=== PATIENT | female | born 1995 | race Caucasian/White ===

== ENCOUNTER 2021-04-03 00:02 | Emergency (ER) | payer SELFPAY ==
[~2021-04-03] VITALS: Ht 157.5 cm; Wt 95.3 kg
[~2021-04-03 00:02] MED LIST: BENZ100C18 PO; PRD20T PO
[2021-04-03] MEDS ORDERED: RT-ALBUTEROL HFA 8.5 GM INHALER IH STA (01:28)
[2021-04-03] MEDS ORDERED: ONDANSETRON 4 MG (ZOFRAN) ORAL DISSOLVE TAB SL ONE (01:30)
[2021-04-03] MEDS ORDERED: OXYMETAZOLINE (AFRIN) 0.05% NA 30 ML BTL ONE (01:34)
[2021-04-03] MEDS ORDERED: ONDA4TAB11 SL (01:37)
[2021-04-03] MEDS ORDERED: ALBU2.5V4 INH (01:37)
--- NOTE | 2021-04-03 01:39 | ED General ---
General Chief Complaint: COVID19 Suspect/Confirmed Stated Complaint: SOB,SORE THROAT,ABD PAIN,TIRED,CONGESTION Nursing Triage Note: nasal/chest congestion x1 week, worse today. runny nose. Source of Information: Patient Exam Limitations: No Limitations History of Present Illness Date Seen by Provider: Apr 03, 2021 Time Seen by Provider: 00:26 Initial Comments This 25-year-old young lady presents to the emergency room with flulike symptoms including cough, congestion, runny nose, headache, and nausea for about 1 week. She reports worsening of the congestion and shortness of breath today. She has a nebulizer machine at home but reports her albuterol has been for a few years. She is afebrile at present with oxygen saturations in the upper 90s. She is in no distress. She has been fully vaccinated for COVID-19. Allergies and Home Medications Allergies Coded Allergies: No Known Drug Allergies (Unverified , 06/05/11) Patient Home Medication List Home Medication List Reviewed: Yes Albuterol Sulfate (Albuterol Sulfate) 2.5 Mg/3 Ml Vial.neb, 2.5 MG INH Q4H PRN for WHEEZING Prescribed by: VEL WOOD on 04/03/21136 Ondansetron (Ondansetron Odt) 4 Mg Tab.rapdis, 4 MG SL Q4H PRN for NAUSEA/VOMITING Prescribed by: VEL WOOD on 04/03/21136 Discontinued Medications Benzonatate (Tessalon Perles) 100 Mg Capsule, 100 MG PO Q8H PRN for COUGH Discontinued Reason: No Longer Taking Prescribed by: USMAN TERRY on 07/06/16 1245 Last Action: Discontinued Prednisone (Prednisone) 20 Mg Tab, 40 MG PO DAILY Discontinued Reason: No Longer Taking Prescribed by: USMAN TERRY on 07/06/16 124 Last Action: Discontinued Review of Systems Review of Systems Constitutional: no symptoms reported EENTM: see HPI Respiratory: see HPI Cardiovascular: no symptoms reported Gastrointestinal: see HPI Genitourinary: no symptoms reported : No Musculoskeletal: no symptoms reported Skin: no symptoms reported Psychiatric/Neurological: See HPI Hematologic/Lymphatic: No Symptoms Reported Immunological/Allergic: no symptoms reported Past Txqauty-Kxqrrm-Srgomc Hx Patient Social History Tobacco Use?: Yes Tobacco type used: Cigars Smoking Status: Current Everyday Smoker Substance use?: No Alcohol Use?: No Pt feels they are or have been: No Immunizations Up To Date First/Initial COVID19 Vaccinat: 08/31 Second COVID19 Vaccination Kishor: 08/31 COVID19 Vaccine Starch Cooker: [place] Seasonal Allergies Seasonal Allergies: Yes Past Medical History Surgery/Hospitalization HX: knee Surgeries: Yes Orthopedic (Left ACL and meniscus) Respiratory: No Cardiac: No Neurological: No : No Last Menstrual Period: Apr 03, 2021 Reproductive Disorders: No Genitourinary: No Gastrointestinal: No Musculoskeletal: No Endocrine: No HEENT: No Cancer: No Psychosocial: No Integumentary: No Family Medical History No Pertinent Family Hx Physical Exam Vital Signs Vital Signs - First Documented 04/03/21 00:11 Temp 36.9 Pulse 100 Resp 18 B/P (MAP) 107/83 (91) Pulse Ox 98 O2 Delivery Room Air Capillary Refill : Less Than 3 Seconds Height, Weight, BMI Height: 5'2" Weight: 125lbs. 0.0oz. 56.812894mr; 38.00 BMI Method:Stated General Appearance: No Apparent Distress, WD/WN HEENT: PERRL/EOMI, TMs Normal, Normal ENT Inspection, Pharynx Normal Neck: Normal Inspection Respiratory: Lungs Clear, Normal Breath Sounds, No Accessory Muscle Use, No Respiratory Distress Cardiovascular: Regular Rate, Rhythm, No Edema, No Murmur Gastrointestinal: Normal Bowel Sounds, Non Tender, Soft Extremity: Normal Inspection, No Pedal Edema Neurologic/Psychiatric: Alert, Oriented x3, No Motor/Sensory Deficits, Normal Mood/Affect Skin: Normal Color, Warm/Dry Progress/Results/Core Measures Suspected Sepsis SIRS Temperature: Pulse: 100 Respiratory Rate: 18 Blood Pressure 107 /83 Mean: 91 Results/Orders Lab Results Laboratory Tests Test 04/03/21 00:17 Range/Units Influenza Type A Antigen NEGATIVE NEGATIVE Influenza Type B Antigen NEGATIVE NEGATIVE My Orders Orders - VEL SMART MD Coronavirus Sars-Cov-2 So 2019 (04/03/21 00:26) Influenza A & B Antigens (04/03/21 00:29) Oxymetazoline 0.05% Nasal [place] (Afrin 0. (04/03/21 09:00) Ondansetron Oral Dissolve Tab (Zofran (04/03/21 01:30) Albuterol Inhaler (Albuterol) (04/03/21 01:28) Oxymetazoline 0.05% Nasal [place] (Afrin 0. (04/03/21 01:34) Medications Given in ED Current Medications Medications Dose Ordered Sig/Glenys Route Start Time Stop Time Status Last Admin Dose Admin Ondansetron HCl 4 mg ONCE ONCE SL 04/03/21 01:30 04/03/21 01:31 DC 04/03/21 01:35 4 MG Vital Signs/I&O 04/03/21 04/03/21 00:11 01:49 Temp 36.9 36.6 Pulse 100 77 Resp 18 16 B/P (MAP) 107/83 (91) 111/73 Pulse Ox 98 100 O2 Delivery Room Air Room Air Capillary Refill : Less Than 3 Seconds Blood Pressure Mean: 91 Progress Note : Progress Note Patient's exam and vital signs were unremarkable. Influenza screen was negative. Send out Covid test was pending. Patient was treated with Zofran, albuterol inhaler, and Afrin. Prescriptions were provided. See discharge instructions for further discussion. Departure Impression Primary Impression: Person under investigation for COVID-19 Additional Impression: Flu-like symptoms Disposition: HOME, SELF-CARE Condition: Improved Departure-Patient Inst. Decision time for Depature: 01:33 Referrals: [facility] (PCP/Family) Primary Care Physician Patient Instructions: COVID-19 ED Add. Discharge Instructions: Your symptoms are suspicious for possible COVID-19 or other viral illness. You and your unvaccinated close contacts should remain in quarantine until the results of your COVID-19 test is known. This should result within 24 to 48 hours. Unvaccinated close contacts should remain in quarantine for 10 days from their last exposure to you during your quarantine time. Drink plenty of clear liquids to stay well-hydrated. You may use Zofran ( ondansetron) as prescribed for nausea and vomiting. You may take ibuprofen up to 600 mg every 6 hours and/or Tylenol (acetaminophen) up to 1000 mg every 6 hours as needed for pain or fever. You may continue taking Mucinex (guaifenesin) ebla-sft-iqgotze. You may also take the Afrin nasal spray provided in the ER, 1 spray in each nostril twice daily for up to 3 days. You should not use this medication longer than 3 days. You may use your inhaler or nebulizer machine every 4 hours as needed for wheezing or shortness of breath. You may take up to 4 puffs on the inhaler in a 4-hour period of time if needed. You may find it helpful to obtain a pulse oximeter to monitor your oxygen saturations when you feel short of breath. If you have repeated oxygen satur ations of less than 92% or any oxygen saturation less than 90%, return to the emergency room for further evaluation. Call with questions or concerns. Return to the ER if you have any other notable worsening of symptoms. All discharge instructions reviewed with patient and/or family. Voiced understanding. Scripts Albuterol Sulfate (Albuterol Sulfate) 2.5 Mg/3 Ml Vial.neb 2.5 MG INH Q4H PRN for WHEEZING, #50 EA 1 Refill Prov: VEL SMART MD 04/03/21 Ondansetron (Ondansetron Odt) 4 Mg Tab.rapdis 4 MG SL Q4H PRN for NAUSEA/VOMITING, #10 TAB Prov: VEL SMART MD 04/03/21 Work/School Note: Work Release Form Date Seen in the Emergency Department: Apr 03, 2021 Return to Work: Apr 05, 2021 Restrictions: Return-No Fever (24hrs), Return-No Vomiting(24hrs) Other Restrictions Listed Below: May return if COVID negative. Quarantine 10 days if COVID positive. Restrictions: Quarantine applies to close contacts also. Follow health dept instructions Copy Copies To 1: CARLOS EDUARDO VIGIL JOSHUA T MD Apr 03, 2021 01:39
[2021-04-03 01:49] VITALS: BP 111/73
[2021-04-03] MEDS ORDERED: OXYMETAZOLINE (AFRIN) 0.05% NA 30 ML BTL SCH (09:00)
== END 2021-04-03 01:51 | disposition home or self-care (01) ==
LOC: EDUNIT# 00:02 → ER 00:08
DX: J11.1 Influenza due to unidentified influenza virus with other respiratory manifestations (principal); F17.290 Nicotine dependence, other tobacco product, uncomplicated; Z20.822 Contact with and (suspected) exposure to COVID-19
CPT/HCPCS: 87635; 87804; 99283

== ENCOUNTER 2021-11-25 19:28 | Emergency (ER) | payer SELFPAY ==
[~2021-11-25] VITALS: Ht 157.5 cm; Wt 63.5 kg
[~2021-11-25 19:28] MED LIST changes: +ALBU2.5V4 INH; +ONDA4TAB11 SL
[2021-11-25] MEDS ORDERED: KETOROLAC 60 MG/2 ML VIAL IM ONE (20:00)
--- NOTE | 2021-11-25 20:00 | ED Lower Extremity ---
General Chief Complaint: Lower Extremity Stated Complaint: POSSIBLE BLOOD CLOT IN LEG Nursing Triage Note: PT ARRIVED BY PRIVATE VEHICLE WITH CHIEF COMPLAINT OF LEG PAIN. [facility] TOLD HER TO COME HERE FOR US FOR POSSIBLE INFECTION OR BLOOD CLOT. PT IS ALERT, ORIENTED X4 AND AMBULATORY. PT STATED ONSET WAS 1.5 WEEKS AGO. PT STATED IT IS RED AND WARM. PT STATED SHE MIGHT HAVE HAD A FEVER, BUT CURRENTLY DOESN'T IN THE ER. PT TOOK IBUPROFEN TODAY ABOUT 6 HOURS AGO. VITALS WERE DONE AND REPORT WAS GIVEN TO PROVIDER. Source: patient Exam Limitations: no limitations (JASPREET ORELLANA APRN) History of Present Illness Date Seen by Provider: November 25, 2021 Time Seen by Provider: 19:43 Initial Comments This is a well-appearing 26-year-old female who presented to the ER via POV with complaints of pain in her right upper thigh. She was evaluated at [facility] and they told her to present to the ER for evaluation of possible cellulitis versus blood clot. States that she has had the symptoms for about 1- 1/2 weeks. Over the last few days she has noticed increased area of redness and warmth to her right lateral upper thigh and has had subjective fevers. She did have a new tattoo placed 4 days ago to her right knee. Describes pain as constant ache that starts in her groin and radiates down her anterior thigh. Has been taking Ibuprofen 800mg TID with no relief. (JASPREET ORELLANA APRN) Allergies and Home Medications Allergies Coded Allergies: No Known Drug Allergies (Unverified , 06/05/11) Patient Home Medication List Home Medication List Reviewed: Yes (JASPREET ORELLANA APRN) Albuterol Sulfate (Albuterol Sulfate) 2.5 Mg/3 Ml Vial.neb, 2.5 MG INH Q4H PRN for WHEEZING Prescribed by: VEL WOOD on 04/03/21136 Ondansetron (Ondansetron Odt) 4 Mg Tab.rapdis, 4 MG SL Q4H PRN for NAUSEA/VOMITING Prescribed by: VEL WOOD on 04/03/21136 Review of Systems Constitutional: see HPI EENTM: no symptoms reported Respiratory: short of breath Cardiovascular: no symptoms reported Gastrointestinal: no symptoms reported Genitourinary: no symptoms reported Musculoskeletal: see HPI Skin: see HPI Psychiatric/Neurological: Anxiety, Emotional Problems (JASPREET ORELLANA APRN) Past Dtibuwj-Yrgtxy-Znlfzn Hx Patient Social History Tobacco Use?: Yes Tobacco type used: Cigarettes Substance use?: No Alcohol Use?: No Pt feels they are or have been: No (JASPREET ORELLANA APRN) Immunizations Up To Date First/Initial COVID19 Vaccinat: 08/31 Second COVID19 Vaccination Kishor: 08/31 (JASPREET ORELLANA APRN) Seasonal Allergies Seasonal Allergies: Yes (JASPREET ORELLANA APRN) Past Medical History Surgery/Hospitalization HX: knee Surgeries: Yes Orthopedic Respiratory: No Cardiac: No Neurological: No Reproductive Disorders: No Genitourinary: No Gastrointestinal: No Musculoskeletal: No Endocrine: No HEENT: No Cancer: No Psychosocial: No Integumentary: No (JASPREET ORELLANA APRN) Family Medical History No Pertinent Family Hx (JASPREET ORELLANA APRN) Physical Exam Vital Signs Capillary Refill : Less Than 3 Seconds (JASPREET ORELLANA APRN) Height, Weight, BMI Height: 5'2" Weight: 125lbs. 0.0oz. 56.180881xt; 25.00 BMI Method:Stated General Appearance: WD/WN, no apparent distress HEENT: PERRL/EOMI, normal ENT inspection Neck: full range of motion, normal inspection Cardiovascular: regular rate, rhythm, no murmur Respiratory: lungs clear, normal breath sounds, no respiratory distress, no accessory muscle use Gastrointestinal: normal bowel sounds, non tender, soft Legs: right leg pain, right leg swelling, right leg other (erythema ) Knees: right knee other (erythema just above knee, new tattoo ) Neurologic/Psychiatric: no motor/sensory deficits, alert, normal mood/affect, oriented x 3 Skin: normal color, warm/dry Lymphatic: inguinal node tender (R) (JASPREET ORELLANA APRN) Progress/Results/Core Measures Results/Orders Lab Results Laboratory Tests Test 11/25/21 20:06 Range/Units White Blood Count 11.2 H 4.3-11.0 10^3/uL Red Blood Count 4.03 3.80-5.11 10^6/uL Hemoglobin 11.6 11.5-16.0 g/dL Hematocrit 34 L 35-52 % Mean Corpuscular Volume 84 80-99 fL Mean Corpuscular Hemoglobin 29 25-34 pg Mean Corpuscular Hemoglobin Concent 34 32-36 g/dL Red Cell Distribution Width 12.6 10.0-14.5 % Platelet Count 481 H 130-400 10^3/uL Mean Platelet Volume 9.1 9.0-12.2 fL Immature Granulocyte % (Auto) 1 % Neutrophils (%) (Auto) 78 H 42-75 % Lymphocytes (%) (Auto) 15 12-44 % Monocytes (%) (Auto) 5 0-12 % Eosinophils (%) (Auto) 1 0-10 % Basophils (%) (Auto) 0 0-10 % Neutrophils # (Auto) 8.8 H 1.8-7.8 10^3/uL Lymphocytes # (Auto) 1.6 1.0-4.0 10^3/uL Monocytes # (Auto) 0.6 0.0-1.0 10^3/uL Eosinophils # (Auto) 0.1 0.0-0.3 10^3/uL Basophils # (Auto) 0.0 0.0-0.1 10^3/uL Immature Granulocyte # (Auto) 0.1 0.0-0.1 10^3/uL Erythrocyte Sedimentation Rate 36 H 0-20 MM/HR D-Dimer 2.79 H 0.00-0.49 UG/ML Sodium Level 136 135-145 MMOL/L Potassium Level 3.9 3.6-5.0 MMOL/L Chloride Level 98 98-107 MMOL/L Carbon Dioxide Level 26 21-32 MMOL/L Anion Gap 12 5-14 MMOL/L Blood Urea Nitrogen 8 7-18 MG/DL Creatinine 0.52 L 0.60-1.30 MG/DL Estimat Glomerular Filtration Rate 131 BUN/Creatinine Ratio 15 Glucose Level 105 70-105 MG/DL Calcium Level 9.1 8.5-10.1 MG/DL Corrected Calcium 9.7 8.5-10.1 MG/DL Total Bilirubin 0.4 0.1-1.0 MG/DL Aspartate Amino Transf (AST/SGOT) 13 5-34 U/L Alanine Aminotransferase (ALT/SGPT) 10 0-55 U/L Alkaline Phosphatase 72 40-136 U/L Total Protein 7.5 6.4-8.2 GM/DL Albumin 3.3 3.2-4.5 GM/DL Serum Test, Qualitative NEGATIVE NEGATIVE (MAXWELLADRIANO Santos KEE) Blood Pressure Mean: 86 Progress Progress Note : Progress Note Patient examined and in no acute distress. Will obtain basic blood work and D- dimer to evaluate for infection vs blood clot. Has new tattoo on her right anterior knee that she received about 4 days ago. She is adamant symptoms started before receiving tattoo and does not feel this is related. Labs reviewed. Minimal elevation in WBC. Has significant increase in D-dimer at 2.79. No US services available at this time. Discussed results with patient and concern for possible blood clot. Patient became very tearful, crying, and anxious. Reassured that we will treat her tonight and will have her return tomorrow for OP ultrasound. However, with her c/o shortness of air I recommend doing a CT angio of her chest to r/o and PE. Initially she refused, but then verbalized consent of procedure. CT angio negative, results communicated to patient. Will treat with 1.5mg/kg Lovenox tonight and have her return tomorrow for US. She is agreeable with plan. While waiting Lovenox injection patient was on phone with mother and decided to walk out of ER without receiving OP order or Lovenox. She left with IV still in arm. Nurse attempted to contact patient via phone. Patient returned to ER to have IV removed, inquired as to why she left before treatment and states her mother feels she should be admitted for her blood clot and they will plan to go to [place] ER for treatment. Discussed with patient that her labs/presentation are indicative of DVT, however without US I cannot confirm DVT at this time. We are weighing risks/benefit of treatment and will go ahead and cover her with Lovenox which is an appropriate initial outpatient treatment for DVT. She agreed to stay and receive Lovenox. Discharge POC reviewed and she is agreeable with plan. (JASPREET ORELLANA APRN) Diagnostic Imaging Diagonstic Imaging: CT Plain Films/CT/US/NM/MRI: chest Comments [facility]. [place], [place] NAME: GEOVANNY ELIAS [facility] REC#: [id number] PT STATUS: REG ER : 1995 PHYSICIAN: JASPREET ORELLANA APRN ADMIT DATE: 11/25/21/ER Signed Date of Exam:11/25/21 CT ANGIO CHEST W PROCEDURE: CT angiography of the chest with contrast. TECHNIQUE: Multiple contiguous axial images were obtained through the chest after uneventful bolus administration of intravenous contrast. 3D reconstructed CTA MIP acquisitions were also performed. Auto Exposure Controls were utilized during the CT exam to meet ALARA standards for radiation dose reduction. INDICATION: Elevated D-dimer. Leg pain. Shortness of breath. COMPARISON: None. FINDINGS: This helical CT pulmonary angiogram is diagnostic to the subsegmental level branches of the pulmonary artery and demonstrates no pulmonary emboli. The heart and great vessels are unremarkable. There is no pericardial effusion. There is no axillary, mediastinal or hilar adenopathy. The lungs demonstrate no consolidation, nodules or other parenchymal abnormality. No pleural effusion is seen. Osseous structures appear normal. Limited views of the upper abdomen are unremarkable. IMPRESSION: No acute pulmonary embolus. Negative CT chest. Dictated by: Dictated on workstation # [id number] Dict: 11/25/212133 Trans: 11/25/212138 [facility] [id number] Interpreted by: EDITH INGRAM DO Electronically signed by: EDITH INGRAM DO 11/25/212138 (JASPREET ORELLANA SOLAR BUSINESS DEVELOPER) Departure Impression Primary Impression: Suspected DVT (deep vein thrombosis) Disposition: 01 HOME, SELF-CARE Condition: Stable Departure-Patient Inst. Decision time for Depature: 22:34 (JASPREET ORELLANA APRN) Referrals: [facility] (PCP/Family) Primary Care Physician Patient Instructions: Deep Vein Thrombosis (Blood Clots in the Legs) (DC) Add. Discharge Instructions: Plan: 1. Given Lovenox 1.5 mg/kg for total dose of 90 mg in the ER prior to discharge. This is a 24-hour dosing. We will schedule you an outpatient ultrasound of your right lower extremity to evaluate for any DVT (deep vein thrombosis) tomorrow. 2. We performed a CT scan of your lungs to check for a pulmonary embolism (blood clot in the lungs). This exam was negative. 3. You will need to follow up with your doctor tomorrow if your ultrasound is positive for a blood clot so we can get you started on the appropriate anticoagulants. We will call results of ultrasound to [facility]. If you do not hear anything please call [facility]. 4. Return for any new, concerning, or worsening symptoms. All discharge instructions reviewed with patient and/or family. Voiced un derstanding. ATTENDING PHYSICIAN NOTE: I WAS PHYSICALLY PRESENT ER PHYSICIAN, BUT I WAS NOT INVOLVED IN ANY DECISION MAKING OR ANY CARE OF THIS PATIENT. (ADRIANO ARREOLA DO) JASPREET ORELLANA SOLAR BUSINESS DEVELOPER November 25, 2021 20:00 ADRIANO ARREOLA DO December 02, 2021 04:16
[2021-11-25 20:20] LABS: ALBUMIN 3.3 GM/DL (3.2-4.5)
[2021-11-25 20:21] LABS: BASOPHILS % (AUTO) 0 % (0-10); EOSINOPHILS # (AUTO) 0.1 10^3/uL (0.0-0.3); EOSINOPHILS % (AUTO) 1 % (0-10); HEMATOCRIT 34 % (35-52); HEMOGLOBIN 11.6 g/dL (11.5-16.0); LYMPHOCYTES # (AUTO) 1.6 10^3/uL (1.0-4.0); LYMPHOCYTES % (AUTO) 15 % (12-44); MEAN CORPUSCULAR HEMOGLOBIN 29 pg (25-34); MEAN CORPUSCULAR HGB CONC 34 g/dL (32-36); MEAN CORPUSCULAR VOLUME 84 fL (80-99); MEAN PLATELET VOLUME 9.1 fL (9.0-12.2); MONOCYTES # (AUTO) 0.6 10^3/uL (0.0-1.0); MONOCYTES % (AUTO) 5 % (0-12); NEUTROPHILS # (AUTO) 8.8 10^3/uL (1.8-7.8); NEUTROPHILS % (AUTO) 78 % (42-75); PLATELET COUNT 481 10^3/uL (130-400); POTASSIUM 3.9 MMOL/L (3.6-5.0); WHITE BLOOD COUNT 11.2 10^3/uL (4.3-11.0)
[2021-11-25 20:22] LABS: CALCIUM 9.1 MG/DL (8.5-10.1)
[2021-11-25 20:23] LABS: TOTAL PROTEIN 7.5 GM/DL (6.4-8.2)
[2021-11-25 20:25] LABS: BILIRUBIN,TOTAL 0.4 MG/DL (0.1-1.0)
[2021-11-25 20:27] LABS: CREATININE SERUM 0.52 MG/DL (0.60-1.30)
[2021-11-25] MEDS ORDERED: KETOROLAC 30 MG/ML VIAL IVP ONE (20:30)
[2021-11-25] MEDS ORDERED: KETOROLAC 30 MG/ML VIAL ONE (20:31)
[2021-11-25 20:36] LABS: ERYTHROCYTE SEDIMENTATION RATE 36 MM/HR (0-20)
[2021-11-25] MEDS ORDERED: NS 100 ML (IVPB) BAG IV ONE (21:15)
[2021-11-25] MEDS ORDERED: IOHEXOL 350 MG/ML 100 ML (OMNIPAQUE 350) VIAL IV ONE (21:15)
--- NOTE | 2021-11-25 21:38 | Diagnostic Imaging Report ---
PROCEDURE: CT angiography of the chest with contrast. TECHNIQUE: Multiple contiguous axial images were obtained through the chest after uneventful bolus administration of intravenous contrast. 3D reconstructed CTA MIP acquisitions were also performed. Auto Exposure Controls were utilized during the CT exam to meet ALARA standards for radiation dose reduction. INDICATION: Elevated D-dimer. Leg pain. Shortness of breath. COMPARISON: None. FINDINGS: This helical CT pulmonary angiogram is diagnostic to the subsegmental level branches of the pulmonary artery and demonstrates no pulmonary emboli. The heart and great vessels are unremarkable. There is no pericardial effusion. There is no axillary, mediastinal or hilar adenopathy. The lungs demonstrate no consolidation, nodules or other parenchymal abnormality. No pleural effusion is seen. Osseous structures appear normal. Limited views of the upper abdomen are unremarkable. IMPRESSION: No acute pulmonary embolus. Negative CT chest. Dictated by: Dictated on workstation # [id number]
[2021-11-25] MEDS: ENOXAPARIN 100 MG/1 ML (LOVENOX) SYR SC ONE ×2 (22:43→22:56)
[2021-11-25 23:08] VITALS: BP 111/72
== END 2021-11-25 23:08 | disposition home or self-care (01) ==
LOC: EDUNIT# 19:28 → ER 19:32
DX: M79.651 Pain in right thigh (principal); D72.829 Elevated white blood cell count, unspecified; R79.1 Abnormal coagulation profile; F17.210 Nicotine dependence, cigarettes, uncomplicated
CPT/HCPCS: 36415; 71275; 80053; 84703; 85025; 85379; 85652; 96372; 96374

== ENCOUNTER 2021-11-26 11:47 | Emergency (ER) | payer SELFPAY ==
--- NOTE | 2021-11-26 12:44 | ED General ---
General Stated Complaint: R LEG PAIN Source of Information: Old Records Exam Limitations: No Limitations History of Present Illness Date Seen by Provider: November 26, 2021 Time Seen by Provider: 11:50 Initial Comments This 26-year-old young lady presented to the emergency room during the prior shift. She was found to have significant right leg swelling and an elevated D- dimer. She was referred back to the hospital this morning for ultrasound to evaluate for DVT. Ultrasound was negative for DVT but there is significant swelling and lymphadenopathy concerning for cellulitis. Patient had not yet been prescribed any antibiotics. Report was delivered to me verbally by the clinical research technician. I reviewed the findings on behalf of the ordering physician. Patient was advised to return to the emergency room for further evaluation with repeat labs and for treatment with IV antibiotics. Patient checked in and orders were placed. Unfortunately, the patient left of the waiting room without being seen. Patient was not examined by this provider. Allergies and Home Medications Allergies Coded Allergies: No Known Drug Allergies (Unverified , 06/05/11) Patient Home Medication List Home Medication List Reviewed: Yes Albuterol Sulfate (Albuterol Sulfate) 2.5 Mg/3 Ml Vial.neb, 2.5 MG INH Q4H PRN for WHEEZING Prescribed by: VEL WOOD on 04/03/21 013 Ondansetron (Ondansetron Odt) 4 Mg Tab.rapdis, 4 MG SL Q4H PRN for NAUSEA/VOMITING Prescribed by: VEL WOOD on 04/03/21 0137 Review of Systems Review of Systems Constitutional: other (Interview was not performed. Constitutional symptoms could not be obtained.) Musculoskeletal: see HPI Past Dmjrdkq-Rfiqvf-Hgkyts Hx Immunizations Up To Date First/Initial COVID19 Vaccinat: 08/31 Second COVID19 Vaccination Kishor: 08/31 Seasonal Allergies Seasonal Allergies: Yes Past Medical History Surgery/Hospitalization HX: knee Surgeries: Yes Orthopedic Respiratory: No Cardiac: No Neurological: No Reproductive Disorders: No Genitourinary: No Gastrointestinal: No Musculoskeletal: No Endocrine: No HEENT: No Cancer: No Psychosocial: No Integumentary: No Family Medical History No Pertinent Family Hx Physical Exam Vital Signs Capillary Refill : Height, Weight, BMI Height: 5'2" Weight: 125lbs. 0.0oz. 56.126868ca; 25.00 BMI Method:Stated General Appearance: Other (Exam not performed. Patient left before being seen) Progress/Results/Core Measures Suspected Sepsis SIRS Temperature: Pulse: Respiratory Rate: Blood Pressure / Mean: Results/Orders My Orders Orders - VEL SMART MD Ed Iv/Invasive Line Start (11/26/21 11:50) Vital Signs/I&O Capillary Refill : Departure Impression Primary Impression: Lower extremity edema Additional Impression: Patient left without being seen Disposition: 07 AGAINST MEDICAL ADVICE Condition: Against Medical Advice Departure-Patient Inst. Referrals: [facility] (PCP) Primary Care Physician Copy Copies To 1: [facility]/VEL ALVA MD November 26, 2021 12:44
== END 2021-11-26 12:30 | disposition left against medical advice (07) ==
LOC: EDUNIT# 11:47 → ER 11:48
DX: R60.0 Localized edema (principal)

== ENCOUNTER → 2021-11-26 | Outpatient (CLI) | payer SELFPAY ==
--- NOTE | 2021-11-26 11:40 | Diagnostic Imaging Report ---
PROCEDURE: US right lower extremity venous. TECHNIQUE: Multiple real-time grayscale images were obtained over the right lower extremity in various projections. Additional spectral analysis and color Doppler duplex images were also obtained. INDICATION: Elevated D-dimer, right leg swelling The veins of the right leg have good color filling and compressibility. There is phasic flow and a normal response to augmentation. There is right inguinal lymphadenopathy with largest lymph node measuring 4 cm in long axis. IMPRESSION: Right inguinal lymphadenopathy. No evidence for deep vein thrombosis. Dictated by: Dictated on workstation # [id number]
== END ==
LOC: RAD 11:30
PROVIDERS: ATTEND Emergency Medicine
DX: M79.661 Pain in right lower leg (principal); R59.0 Localized enlarged lymph nodes; M79.89 Other specified soft tissue disorders; R79.1 Abnormal coagulation profile